=== PATIENT | female | born 1995 | race African-American/Black ===

== ENCOUNTER 2016-12-23 23:59 | Emergency (ER) | payer OTHER ==
[~2016-12-23 23:59] MED LIST: AUGMENTIN PO; VOLTAREN75 MG PO
== END 2016-12-24 00:20 | disposition left against medical advice (07) ==
LOC: CED 23:59
DX: Z53.21 Procedure and treatment not carried out due to patient leaving prior to being seen by health care provider (principal)

== ENCOUNTER 2017-04-22 19:46 | Emergency (ER) | payer BC, OTHER ==
[~2017-04-22] VITALS: Ht 162.6 cm; Wt 158.8 kg
--- NOTE | ~2017-04-22 | CT71 ---
[facility] A Service [facility] RADIOLOGY TEXT RESULTS PATIENT: ANGELINA RILEY LOCATION: [place] : [birth year] UNIT #: [id number] AGE: [address]: Igor Mccauley MD SEX: F ORDER DR: [id number] [address] [address] [id number] MR#: [id number] Acc #: [id number] NAME: ANGELINA RILEY : 1995 SEX: F STUDY DATE/TIME: 04/22/2017 21:28 UNIT: SED ROOM: STUDY DESCRIPTION: CT Head Wo Contrast Attending Physician: Igor Mccauley M.D. Ordering Physician: Igor Mccauley M.D. Primary Care Physician: [facility] MEDICAL IMAGING REPORT This report is preliminary unless electronic signature is present. EXAM CT head without contrast, 04/22/2017 COMPARISON None. HISTORY Headache x2 days. ERA, blurry vision and possible Strep throat. FINDINGS CT of the head was obtained without contrast in the axial plane as per the protocol. This CT exam was performed with one or more of the following radiation dose reduction techniques: automatic exposure control, adjustment of mA and/or kV according to patient size, and iterative reconstruction. Axial noncontrast images were obtained from the skull base to the vertex. Ventricular size and configuration are normal. There is no evidence of acute infarct or hemorrhage. There are no extraaxial fluid collections. No mass lesion or mass effect is seen. There are no skull fractures. IMPRESSION Normal noncontrast head CT. Dictated by... [facility] A Service [facility] RADIOLOGY TEXT RESULTS PATIENT: ANGELINA RILEY LOCATION: SED : [birth year] UNIT #: [id number] AGE: [address]: Igor Mccauley MD SEX: F ORDER DR: Eze Sanchez M.D. THIS IS AN ELECTRONICALLY VERIFIED REPORT Eze Sanchez M.D. at 04/23/2017 1:27 PM CPR/ashkan TD: 04/22/2017 23:47 JOB #: [id number] MEDICAL IMAGING REPORT Page 1 of 1
--- NOTE | ~2017-04-22 | EKG ---
PATIENT: ANGELINA RILEY UNIT #: [id number] Ventricular Rate: 104 BPM Atrial Rate: 104 BPM P-R Interval: 128 ms QRS Duration: 80 ms Q-T Interval: 308 ms QTC Calculation(Bezet): 405 ms P [place]: 52 degrees Calculated R [place]: 2 degrees Calculated T [place]: -163 degrees Diagnosis Line: Sinus tachycardia Diagnosis Line: Minimal voltage criteria for LVH, may be normal Diagnosis Line: variant Diagnosis Line: Nonspecific ST and T wave abnormality Diagnosis Line: Abnormal ECG Diagnosis Line: No previous ECGs available Diagnosis Line: Confirmed by EB GRIFFITH MD ([id number]) on Diagnosis Line: 04/23/2017 3:52:26 PM INTERPRETING MD: FLOR
[2017-04-22] MEDS ORDERED: NO MEDICATIONS (20:00)
[2017-04-22 21:02] LABS: URINE APPEARANCE CLEAR; URINE BILIRUBIN NEG (NEG); URINE BLOOD NEG (NEG); URINE COLOR YELLOW; URINE GLUCOSE NEG (NORM); URINE KETONE NEG (NEG); URINE LEUKOCYTE ESTERASE NEG (NEG); URINE NITRATE NEG (NEG); URINE PROTEIN NEG (NEG)
[2017-04-22 21:02] LABS: BASOPHIL% 0.5 % (0-2.5); EOSINOPHIL# 0.1 X10e3 (0-0.7); EOSINOPHIL% 0.8 % (0.0-7.0); HEMATOCRIT 33.8 % (35.0-45.0); LYMPHOCYTE% 19.6 % (17.0-45.0); MEAN CORPUSCULAR HEMOGLOBIN 26.1 PG (28-34); MEAN CORPUSCULAR HGB CONC 32.6 g/dL (30-36); MEAN PLATELET VOLUME 8.2 FL (6.5-11.5); MONOCYTE# 0.6 X10e3 (0-1.0); MONOCYTE% 5.9 % (3.0-12.0); NEUTROPHIL# 7.3 X10e3 (1.5-7.1); NEUTROPHIL% 73.2 % (40-75); PLATELET COUNT 327 X10e3 (140-420); RED BLOOD COUNT 4.23 X10e (3.90-5.30); RED CELL DISTRIBUTION WIDTH 15.8 % (11.0-15.5)
[2017-04-22 21:04] LABS: MICRO INDICATED? NO; URINE SOURCE CLEAN CATCH
[2017-04-22 21:04] LABS: DIFF IND NO
[2017-04-22 23:23] LABS: ALBUMIN SERUM 3.6 g/dL (3.5-5.0); BILIRUBIN, DIRECT 0.1 mg/dL (0.0-0.2); BILIRUBIN,INDIRECT 0.3 mg/dL (0.0-0.9); BILIRUBIN,TOTAL 0.4 mg/dL (0.2-2.0); CALCIUM SERUM 8.4 mg/dL (8.4-10.2); CREATININE SERUM 0.6 mg/dL (0.6-1.4); GLOM FILT RATE Estimated 148.9 mL/min (>60); PROTEIN TOTAL SERUM 6.5 g/dL (6.0-8.3)
== END 2017-04-22 23:47 | disposition home or self-care (01) ==
LOC: SED 19:46
PROVIDERS: Emergency Medicine
DX: J02.0 Streptococcal pharyngitis (principal); F17.200 Nicotine dependence, unspecified, uncomplicated
CPT/HCPCS: 70450; 80048; 80076; 81003; 82947; 84703; 85025; 87880; 93005; 96361; 96372; 96374; 99284; J0561; J1885